=== PATIENT | female | born 1975 | race Caucasian/White ===

== ENCOUNTER 2020-07-04 10:50 | Emergency (ER) | payer SELFPAY | END 2020-07-04 11:49 | disposition home or self-care (01) | LOC: NAV ERS 10:50 | DX: S61.011A Laceration without foreign body of right thumb without damage to nail, initial encounter (principal); I10 Essential (primary) hypertension; K21.9 Gastro-esophageal reflux disease without esophagitis; Z87.891 Personal history of nicotine dependence; Z79.899 Other long term (current) drug therapy; W27.4XXA Contact with kitchen utensil, initial encounter | CPT/HCPCS: 12001; 90471 ==